=== PATIENT | female | born 1945 | race Caucasian/White ===

== ENCOUNTER 2019-07-25 12:11 | Emergency (ER) | payer OTHER, MEDICARE ==
[~2019-07-25] VITALS: Ht 157.4 cm; Wt 72.6 kg
[~2019-07-25 12:11] MED LIST: GLUCOPHAGE1000 MG PO; NAVANE1 MG PO
== END 2019-07-25 15:09 | disposition home or self-care (01) ==
LOC: ED 12:11
DX: S60.221A Contusion of right hand, initial encounter (principal); E11.9 Type 2 diabetes mellitus without complications; F17.200 Nicotine dependence, unspecified, uncomplicated; Z79.899 Other long term (current) drug therapy; Z88.6 Allergy status to analgesic agent; Z88.8 Allergy status to other drugs, medicaments and biological substances; Z91.040 Latex allergy status; V89.2XXA Person injured in unspecified motor-vehicle accident, traffic, initial encounter; Y93.89 Activity, other specified; Y92.89 Other specified places as the place of occurrence of the external cause; Y99.8 Other external cause status

== ENCOUNTER 2021-06-17 00:48 | Emergency (ER) | payer MEDICARE ==
[~2021-06-17] VITALS: Ht 160 cm; Wt 77.1 kg
[2021-06-17 01:52] LABS: BASO # 0.1 10*3/uL (0.0-0.1); BASO % 0.4 % (0.0-1.0); EOS # 0.2 10*3/uL (0.0-0.4); EOS % 1.3 % (1.0-4.0); HEMATOCRIT 42.8 % (37.0-47.0); LYMPH # 2.3 10*3/uL (1.3-4.4); LYMPH % 17.8 % (27.0-41.0); MEAN CELL VOLUME 98.6 fl (81.0-99.0); MEAN CORPUSCULAR HGB 32.7 pg (27.0-31.0); MEAN CORPUSCULAR HGB CONC 33.2 g/dl (33.0-37.0); MEAN PLATELET VOLUME 9.3 fl (9.6-12.3); MONO # 1.1 10*3/uL (0.1-1.0); MONO % 8.6 % (3.0-9.0); NEUT # 9.1 10*3/uL (2.3-7.9); NEUT % 71.5 % (47.0-73.0); PLATELET COUNT AUTOMATED 251 10*3/uL (130-400); RED BLOOD COUNT 4.34 10*6/uL (4.10-5.10); WHITE BLOOD COUNT 12.7 10*3/uL (4.8-10.8)
[2021-06-17 02:05] LABS: BUN 9 mg/dl (7-24); CHLORIDE 106 mmol/L (98-107); CREATININE 0.63 mg/dL (0.55-1.02); POTASSIUM 3.7 mmol/L (3.5-5.1); SODIUM 136 mmol/L (136-145)
[2021-06-17] MEDS ORDERED: AUGMENTIN 875875 MG PO (05:31)
== END 2021-06-17 07:17 | disposition home or self-care (01) ==
LOC: ED 00:48
PROVIDERS: Internal Medicine
DX: J35.1 Hypertrophy of tonsils (principal); D72.829 Elevated white blood cell count, unspecified; Z88.6 Allergy status to analgesic agent; Z88.8 Allergy status to other drugs, medicaments and biological substances; Z91.040 Latex allergy status; Z79.899 Other long term (current) drug therapy

== ENCOUNTER → 2022-04-29 | Day surgery (SDC) | payer MEDICARE, OTHER ==
[~2022-04-29] VITALS: Ht 157.4 cm; Wt 74.8 kg
[~2022-04-29] MED LIST changes: +ADVAIR HFA 230-12 GM INH; +AUGMENTIN 875875 MG PO; +GOOD NEIGHBOR L10 MG PO; +LOVASTATIN40 MG PO; +NAVANE5 MG PO; +NEURONTIN300 MG PO; +OSTERA TABLET1 EACH PO; +PROVENTIL HFA6.7 GM INH; +TRADJENTA5 M1 PO
[2022-04-29 08:45] VITALS: BP 142/77
[2022-04-29 09:51] VITALS: BP 150/86
[2022-04-29 10:06] VITALS: BP 152/81
[2022-04-29 10:21] VITALS: BP 144/58
== END | disposition home or self-care (01) ==
LOC: SDC 03-27 12:30
PROVIDERS: ATTEND Ophthalmology
DX: E11.36 Type 2 diabetes mellitus with diabetic cataract (principal); H25.812 Combined forms of age-related cataract, left eye; F41.9 Anxiety disorder, unspecified; J44.9 Chronic obstructive pulmonary disease, unspecified; F17.210 Nicotine dependence, cigarettes, uncomplicated; Z79.899 Other long term (current) drug therapy

== ENCOUNTER → 2022-07-01 | Day surgery (SDC) | payer MEDICARE, OTHER ==
[~2022-07-01] VITALS: Ht 160 cm; Wt 77.1 kg
[2022-07-01 09:11] VITALS: BP 136/81
[2022-07-01 10:23] VITALS: BP 161/77
[2022-07-01 10:37] VITALS: BP 141/78
[2022-07-01 10:55] VITALS: BP 160/73
== END | disposition home or self-care (01) ==
LOC: SDC 06-26 08:00
PROVIDERS: ATTEND Ophthalmology
DX: E11.36 Type 2 diabetes mellitus with diabetic cataract (principal); H25.811 Combined forms of age-related cataract, right eye; J44.9 Chronic obstructive pulmonary disease, unspecified; F41.9 Anxiety disorder, unspecified; E78.00 Pure hypercholesterolemia, unspecified; F17.210 Nicotine dependence, cigarettes, uncomplicated; Z79.899 Other long term (current) drug therapy

== ENCOUNTER 2023-05-28 05:51 | Emergency (ER) | payer MEDICARE, OTHER ==
[~2023-05-28] VITALS: Ht 160 cm; Wt 93.0 kg
[~2023-05-28 05:51] MED LIST changes: +ANTIVERT25 M2 PO; +MUCINEX ER600 MG PO; +PREDNISONE10 MG PO; +ZITHROMAX250 MG PO
[2023-05-28 06:25] LABS: BASO % 0.3 % (0.0-1.0); EOS # 0.1 10*3/uL (0.0-0.4); EOS % 1.1 % (1.0-4.0); HEMATOCRIT 39.9 % (37.0-47.0); LYMPH # 1.4 10*3/uL (1.3-4.4); LYMPH % 13.4 % (27.0-41.0); MEAN CELL VOLUME 101.3 fl (81.0-99.0); MEAN CORPUSCULAR HGB 33.5 pg (27.0-31.0); MEAN CORPUSCULAR HGB CONC 33.1 g/dl (33.0-37.0); MEAN PLATELET VOLUME 10.3 fl (9.6-12.3); MONO # 0.9 10*3/uL (0.1-1.0); MONO % 8.8 % (3.0-9.0); NEUT # 8.2 10*3/uL (2.3-7.9); NEUT % 76.1 % (47.0-73.0); PLATELET COUNT AUTOMATED 215 10*3/uL (130-400); RED BLOOD COUNT 3.94 10*6/uL (4.10-5.10); RED CELL DISTRI WIDTH 12.5 % (0-14.5); WHITE BLOOD COUNT 10.7 10*3/uL (4.8-10.8)
[2023-05-28] MEDS ORDERED: CYANOCOBALAMIN5 GM IM (06:37)
[2023-05-28] MEDS ORDERED: BISACODYL10 MG R (06:39)
[2023-05-28] MEDS ORDERED: DEPAKOTE ER250 MG PO (06:41)
[2023-05-28] MEDS ORDERED: LASIX20 MG PO (06:42)
[2023-05-28 06:45] LABS: ALKALINE PHOSPHATASE 67 U/L (46-116); BUN 14 mg/dl (9-23); CHLORIDE 103 mmol/L (98-107); LIPASE 29 U/L (12-53); POTASSIUM 4.3 mmol/L (3.4-5.1); SGPT/ALT 13 U/L (5-49); TOTAL PROTEIN 6.2 gm/dL (6.0-8.0)
[2023-05-28] MEDS ORDERED: SINGULAIR10 M1 PO (06:45)
[2023-05-28] MEDS ORDERED: REXULTI0.5 MG PO (06:48)
[2023-05-28] MEDS ORDERED: INGREZZA INITI1 EACH PO (06:49)
[2023-05-28] MEDS ORDERED: VOLTAREN ARTHRI20 GM T (06:52)
[2023-05-28] MEDS ORDERED: PREDNISONE20 M1 PO (08:03)
[2023-05-28] MEDS ORDERED: AVPAK AZITHROM250 M1 PO (08:03)
== END 2023-05-28 08:58 | disposition home or self-care (01) ==
LOC: ED 05:51
PROVIDERS: Internal Medicine
DX: J44.1 Chronic obstructive pulmonary disease with (acute) exacerbation (principal); E11.9 Type 2 diabetes mellitus without complications; F17.210 Nicotine dependence, cigarettes, uncomplicated; Z88.8 Allergy status to other drugs, medicaments and biological substances; Z79.899 Other long term (current) drug therapy; Z98.890 Other specified postprocedural states

== ENCOUNTER → 2024-03-24 | Outpatient (CLI) | payer MEDICARE, OTHER ==
[~2024-03-24] MED LIST changes: +ASPIRIN ADULT L81 M2 PO; +AVPAK AZITHROM250 M1 PO; +BISACODYL10 MG R; +CYANOCOBALAMIN5 GM IM; +DEPAKOTE ER250 MG PO; +INGREZZA INITI1 EACH PO; +LASIX20 MG PO; +LIPITOR40 MG PO; +OMNICEF300 MG PO; +OXYCODONE HCL10 M1 PO; +PREDNISONE20 M1 PO; +PREDNISONE50 MG PO; +REXULTI0.5 MG PO; +SINGULAIR10 M1 PO; +VITAMIN D350 MCG PO; +VOLTAREN ARTHRI20 GM T
== END | disposition home or self-care (01) ==
LOC: ORTHO 01:24
PROVIDERS: ATTEND Orthopaedic Surgery
DX: S82.492D Other fracture of shaft of left fibula, subsequent encounter for closed fracture with routine healing (principal); S82.842D Displaced bimalleolar fracture of left lower leg, subsequent encounter for closed fracture with routine healing; X58.XXXD Exposure to other specified factors, subsequent encounter